=== PATIENT | female | born 1990 | race Caucasian/White ===

== ENCOUNTER 2016-10-30 23:53 | Inpatient (IN) | payer BC ==
[~2016-10-30] VITALS: Ht 172.7 cm; Wt 90.3 kg
[~2016-10-30 23:53] MED LIST: LIDOCAINE 2% 5 ML IV ONE
[2016-10-31] VITALS (8 sets, daily range): BP systolic 89–140; RESP 16–23; TEMP 97.7–99.4; Ht 172.7 cm; Wt 90.3 kg
[2016-10-31] MEDS ORDERED: TERBUTALINE 1 MG/ML VIAL SUBQ PRN (00:30)
[2016-10-31] MEDS ORDERED: PROMETHAZINE 25 MG/ML VIAL IV PRN (00:30)
[2016-10-31] MEDS ORDERED: OXYTOCIN 15 UNITS/250 ML NS 250 ML IV SCH ×3 (00:30→16:50)
[2016-10-31] MEDS ORDERED: ACETAMINOPHEN 325 MG TAB PO PRN (00:30)
[2016-10-31] MEDS ORDERED: LIDOCAINE 1% 30 ML PF INFILTRATE ONE (00:30)
[2016-10-31] MEDS ORDERED: FAMOTIDINE 20 MG INJ IV PRN (00:30)
[2016-10-31] MEDS ORDERED: ONDANSETRON 4 MG VIAL IV PRN (00:30)
[2016-10-31] MEDS ORDERED: ALU/MAG/SIM 30 ML UDC PO PRN (00:30)
[2016-10-31] MEDS ORDERED: LIDOCAINE 1% BUFFERED 1 ML SYR INTRADERM PRN (00:30)
[2016-10-31] MEDS ORDERED: METOCLOPRAMIDE 10 MG/2 ML VIAL IV PUSH PRN (00:30)
[2016-10-31] MEDS ORDERED: CEFAZOLIN (LD/OB) 100 ML IV PRN (00:30)
[2016-10-31] MEDS ORDERED: FAMOTIDINE 20 MG TAB PO PRN (00:30)
[2016-10-31] MEDS ORDERED: ROPIV/FENT 0.2%-2MCG/ML 100 ML EPIDURAL ONE (02:10)
[2016-10-31] MEDS ORDERED: FENTANYL 100 MCG/2 ML AMP ONE (02:11)
[2016-10-31] MEDS ORDERED: LACT RINGERS 500 ML IV ONE (03:10)
[2016-10-31] MEDS ORDERED: SODIUM CHLORIDE 0.9% 500 ML IV PRN (03:10)
[2016-10-31] MEDS ORDERED: LACT RINGERS 500 ML IV PRN (03:10)
[2016-10-31] MEDS ORDERED: FENTANYL 100 MCG/2 ML AMP EPIDURAL ONE (03:10)
[2016-10-31] MEDS: LACT RINGERS 1,000 ML IV SCH ×4 (04:10→13:40)
[2016-10-31] MEDS: ROPIV/FENT 0.2%-2MCG/ML 100 ML EPIDURAL SCH ×2 (04:11→10:35)
[2016-10-31] MEDS: **ONLY ANESTEHSIA MAY ORDER OPIATES WHILE ON EPIDURAL XX SCH ×2 (08:00→20:00)
[2016-10-31] MEDS ORDERED: TDaP 0.5 ML VIAL IM.VACC ONE (16:50)
[2016-10-31] MEDS ORDERED: MEASLES,MUMPS,RUBELLA VAC SUBQ.VACC ONE (16:50)
[2016-10-31] MEDS ORDERED: DERMOPLAST SPRAY TOPICAL PRN (16:50)
[2016-10-31] MEDS ORDERED: OXYCODONE/APAP 5/325 TAB PO PRN (16:50)
[2016-10-31] MEDS ORDERED: ZOLPIDEM 5 MG TAB PO PRN (16:50)
[2016-10-31] MEDS ORDERED: ASTRINGENT MED PADS 40'S TOPICAL PRN (16:50)
[2016-10-31] MEDS ORDERED: MAG HYDROX 30 ML UDC PO PRN (16:50)
[2016-10-31] MEDS: Ibuprofen 600 MG TAB PO PRN ×2 (18:15→23:20)
[2016-11-01] VITALS (7 sets, daily range): BP systolic 98–133; RESP 16–18; TEMP 97.8–99.1
[2016-11-01] MEDS: Ibuprofen 600 MG TAB PO PRN ×4 (05:24→23:46)
[2016-11-01] MEDS: **ONLY ANESTEHSIA MAY ORDER OPIATES WHILE ON EPIDURAL XX SCH (07:09)
[2016-11-01] MEDS: DOCUSATE SOD 100 MG CAP PO SCH (08:03)
[2016-11-02] MEDS: Ibuprofen 600 MG TAB PO PRN ×2 (05:56→11:52)
[2016-11-02] MEDS: DOCUSATE SOD 100 MG CAP PO SCH (08:20)
[2016-11-02 09:28] VITALS: BP_SYST 121; TEMP 98.1
[2016-11-02 09:29] VITALS: RESP 20
[2016-11-02] MEDS ORDERED: MISSING DOSE XX ONE (09:55)
[2016-11-02] MEDS ORDERED: Flu Vaccine Quadrivalent 60 MCG/0.5 ML IM.VACC ONE (09:55)
[2016-11-02 11:08] VITALS: BP_SYST 121; RESP 20; TEMP 98.1
== END 2016-11-02 13:14 | disposition home or self-care (01) | DRG 775 ==
LOC: LDOP 23:53 → LD 23:57 → OB 10-31 20:00
PROVIDERS: ADMIT Obstetrics & Gynecology; ATTEND Obstetrics & Gynecology
PROC: 10E0XZZ Delivery of Products of Conception, External Approach (ICD-10-PCS; principal; 2016-10-31)
PROC: 0W8NXZZ Division of Female Perineum, External Approach (ICD-10-PCS; 2016-10-31)
PROC: 10907ZC Drainage of Amniotic Fluid, Therapeutic from Products of Conception, Via Natural or Artificial Opening (ICD-10-PCS; 2016-10-31)
DX: O80 Encounter for full-term uncomplicated delivery (principal); Z23 Encounter for immunization; Z37.0 Single live birth; Z3A.39 39 weeks gestation of pregnancy
CPT/HCPCS: 85025; 90471